=== PATIENT | male | born 1965 | race African-American/Black ===

== ENCOUNTER 2017-07-24 14:42 | Emergency (ER) | payer OTHER ==
[~2017-07-24] VITALS: Ht 182.9 cm; Wt 106.8 kg
[~2017-07-24 14:42] MED LIST: 00186-0372-20 IH; ALEVE220 MG PO; ASPIRIN 81M81 MG/TA2 PO; CLARITIN 1010 MG/TAB PO; GLUCOPHAGE500 MG/TAB PO; LORTAB 5/500 501 TAB PO; NORVASC 5MG5 MG/TAB PO; PRINIVIL20 MG PO; PROVENTIL0.09 MG/A1 IH; ROXICODONE 55 MG/TAB PO; ZOCOR 20MG20 MG PO
[2017-07-24 14:48] VITALS: BP 138/69; PULSE 100; TEMP 98.6
== END 2017-07-24 16:35 | disposition left against medical advice (07) ==
LOC: COL.ER 14:42
DX: R05 Cough (principal); R09.81 Nasal congestion; Z79.82 Long term (current) use of aspirin; Z79.84 Long term (current) use of oral hypoglycemic drugs